=== PATIENT | female | born 1985 | race Caucasian/White ===

== ENCOUNTER 2018-11-15 17:37 | Emergency (ER) | payer MEDICAID ==
[~2018-11-15] VITALS: Ht 170.2 cm; Wt 62.0 kg
[2018-11-15 17:40] VITALS: BP 130/70
[2018-11-15] MEDS ORDERED: ALBUTEROL/IPRATROPIUM 2.5MG/0.5MG, 3 ML NPPB ONE (18:00)
[2018-11-15] MEDS ORDERED: ONDANSETRON ODT 4 MG PO ONE (18:00)
[2018-11-15] MEDS ORDERED: ONDANSETRON ODT 4 MG ONE (18:10)
[2018-11-15] MEDS ORDERED: ALBU18HF INH (18:24)
== END 2018-11-15 19:41 | disposition home or self-care (01) ==
LOC: ED 19:28
DX: J45.31 Mild persistent asthma with (acute) exacerbation (principal)
CPT/HCPCS: 99283; J7512; Q0162

== ENCOUNTER 2020-02-28 20:17 | Emergency (ER) | payer MEDICAID ==
[~2020-02-28] VITALS: Ht 170.2 cm; Wt 67.7 kg
[~2020-02-28 20:17] MED LIST: ALBU18HF INH
--- NOTE | 2020-02-28 20:53 | NUR ---
Pt presents to room reporting right lumbar pain for 1.5 weeks that originated in her thoracic area. Pt then reports noticing bright red blood from her rectum today and the pain spreading to her RLQ. No pain is reproducible with palpation.
[2020-02-28 21:22] LABS: MICROSCOPIC NOT IND
[2020-02-28 21:22] LABS: BASOPHILS # (AUTO) 0.05 x10^3/uL (0-0.1); BASOPHILS % (AUTO) 1 % (0-1); EOSINOPHILS # (AUTO) 0.82 x10^3/uL (0-0.4); EOSINOPHILS % (AUTO) 12 % (1-7); LYMPHOCYTES # (AUTO) 3.45 x10^3/uL (1-3.4); LYMPHOCYTES % (AUTO) 49 % (22-44); MD NO; MEAN CORPUSCULAR HEMOGLOBIN 30.1 pg (27.0-34.8); MEAN CORPUSCULAR HGB CONC 32.9 g/dL (32.4-35.8); MEAN CORPUSCULAR VOLUME 91.4 fL (80-100); MEAN PLATELET VOLUME 8.6 fL (7.4-10.4); MONOCYTES # (AUTO) 0.61 x10^3/uL (0.2-0.8); MONOCYTES % (AUTO) 9 % (2-9); NEUTROPHILS # (AUTO) 2.15 x10^3/uL (1.8-6.8); NEUTROPHILS % (AUTO) 30 % (42-75); PLATELET COUNT 232 x10^3/uL (130-400); RED BLOOD COUNT 4.57 x10^6/uL (3.82-5.3); RED CELL DISTRIBUTION WIDTH 13.4 % (9.6-15.2)
[2020-02-28 21:30] LABS: ALANINE AMINOTRANSFERASE 21 U/L (12-78); ALBUMIN 3.5 g/dL (3.4-5.0); ANION GAP 5 mmol/L (5-15); CALCIUM 8.1 mg/dL (8.5-10.1); CHLORIDE 110 mmol/L (98-107); CREATININE 0.85 mg/dL (0.55-1.02)
[2020-02-28 21:33] LABS: CULTURE INDICATED? NO
[2020-02-28 21:34] LABS: ALKALINE PHOSPHATASE 58 U/L (45-117); BILIRUBIN,TOTAL 0.1 mg/dL (0.2-1.0); TOTAL PROTEIN 7.5 g/dL (6.4-8.2)
[2020-02-28 22:39] VITALS: BP 149/84
== END 2020-02-28 22:41 | disposition home or self-care (01) ==
LOC: ED 22:34
DX: K64.8 Other hemorrhoids (principal); K62.5 Hemorrhage of anus and rectum; R10.9 Unspecified abdominal pain
CPT/HCPCS: 36415; 80053; 81003; 83690; 84703; 85025; 99283